=== PATIENT | male | born 1985 | race Caucasian/White ===

== ENCOUNTER 2017-12-25 19:05 | Emergency (ER) | payer BC ==
[2017-12-25] MEDS ORDERED: CEPHALEXIN 500 MG CAPSULE PO STA (19:47)
--- NOTE | 2017-12-25 19:47 | Emergency Department Record ---
History of Present Illness - General Stated Complaint: LACERATION ON RT HAND Time Seen by Provider: 12/25/17 19:41 Source: Patient Mode of Arrival: Ambulatory Limitations: No limitations - History of Present Illness Initial Comments: 32 yo male presents to ED for evaluation of a laceration to the right hand that occurred approximately 18 hours ago. Patient reports that he attempted to catch a falling knife early this morning, reports laceration to the palmar aspect of the right hand. Patient denies other injury, does report that his tetanus is UTD. Patient denies other injury, and denies finger weakness on examination. Complaint: Injury to:: Right Onset/Timin -: Hour(s) Other Extremity Injury: Hand: Right Other Injuries: None Handedness: Right Place: Home Improves With: Other (bandage) Associated Symptoms: Denies other symptoms Treatments Prior to Arrival: Bandage - Related Data Home Medications Medication Instructions Recorded Confirmed Last Taken Atomoxetine HCl [Atomoxetine HCl] 100 mg PO DAILY 12/25/17 12/25/17 Unknown Previous Rx's Medication Instructions Recorded Cephalexin [Keflex] 500 mg PO QID #28 cap 12/25/17 Allergies Allergy/AdvReac Type Severity Reaction Status Date / Time Sulfa (Sulfonamide AdvReac RASH Verified 03/13/16 13:51 Antibiotics) Review of Systems Constitutional: Denies: Chills, Fever, Malaise, Night sweats Eyes: Denies: Eye discharge, Eye pain ENT: Denies: Congestion, Ear pain, Epistaxis Respiratory: Denies: Cough, Dyspnea Cardiovascular: Denies: Chest pain, Dyspnea on exertion Endocrine: Denies: Fatigue, Heat or cold intolerance Gastrointestinal: Denies: Abdominal pain, Nausea, Vomiting Genitourinary: Denies: Incontinence, Retention Musculoskeletal: Denies: Arthralgia, Back pain, Gout, Joint swelling Skin: Reports: Other (hand laceration). Denies: Bruising, Change in color Neurological: Denies: Abnormal gait, Confusion, Headache Psychiatric: Denies: Anxiety Hematological/Lymphatic: Denies: Anemia, Blood Clots Past Medical History - SOCIAL HISTORY Smoking Status: Former smoker - RESPIRATORY Hx Respiratory Disorders: Yes Hx Asthma: Yes (WHEN HE WAS YOUNGER) Comment:: POPCORN KERNEL IN RT LUNG - CARDIOVASCULAR Hx Cardio Disorders: No - NEURO Hx Neuro Disorders: No - GI Hx GI Disorders: No - Hx Genitourinary Disorders: No - ENDOCRINE Hx Endocrine Disorders: No - MUSCULOSKELETAL Hx Musculoskeletal Disorders: No Comment:: GANGLION LEFT HAND - PSYCH Hx Psych Problems: Yes Hx Depression: Yes (IMPROVED) Comment:: THOUGHTS OF SUICIDE 2009 - HEMATOLOGY/ONCOLOGY Hx Hematology/Oncology Disorders: No Physical Exam - General General Appearance: Alert, Oriented x3, Cooperative, Mild distress Limitations: No limitations - Head Head exam: Atraumatic, Normocephalic, Normal inspection Head exam detail: negative: Abrasion, Contusion, Leon's sign, General tenderness, Hematoma, Laceration - Eye Eye exam: Normal appearance. negative: Conjunctival injection, Periorbital swelling, Periorbital tenderness, Scleral icterus - ENT Ear exam: negative: Auricular hematoma, Auricular trauma Nasal Exam: negative: Active bleeding, Discharge, Dried blood, Foreign body Mouth exam: negative: Drooling, Laceration, Muffled voice, Tongue elevation - Neck Neck exam: Normal inspection. negative: Meningismus, Tenderness - Respiratory Respiratory exam: Normal lung sounds bilaterally. negative: Respiratory distress, Rhonchi, Stridor, Wheezes - Cardiovascular Cardiovascular Exam: Regular rate, Normal rhythm, Normal heart sounds - GI/Abdominal GI/Abdominal exam: Soft. negative: Rebound, Rigid, Tenderness - Rectal Rectal exam: Deferred - exam: Deferred - Extremities Extremities exam: Tenderness, Other (2.0 cm laceration of the ashely aspect of the right hand between the thumb and 1st digit, no tendon laceration on examination. FROM of all digits with flexion/extension intact.). negative: Calf tenderness, Pedal edema - Back Back exam: Denies: CVA tenderness (R), CVA tenderness (L) - Neurological Neurological exam: Alert, Normal gait, Oriented X3 - Psychiatric Psychiatric exam: Normal affect, Normal mood - Skin Skin exam: Normal color. negative: Abrasion Type of lesion: negative: abrasion Course - Reevaluation(s) Reevaluation #1: 12/25/17 20:00 Procedure Note: Wound was anesthetized with 2.0 mL of 1% Lidocaine with epi solution with good anesthesia. Wound was prepped in sterile fashion, scrubbed with Hibiclens solution and jet irrigation performed to minimize the chance of infection. Wound was then closed using 4-0 Prolene sutures, #5 in interrupted fashion with good cosmesis and hemostasis. Patient tolerated the procedure well without complications. Patient was counseled extensively re: the chance of infection given the duration of laceration (18 hours), will initiate antibiotics as well as following thorough irrigation to minimize the chance of infection. Patient appears stable for discharge at this time with instructions to return for suture removal in 10-14 days. Disposition Disposition: Discharge Clinical Impression: Hand laceration Qualifiers: Encounter type: initial encounter Foreign body presence: without foreign body Laterality: right Qualified Code(s): S61.411A - Laceration without foreign body of right hand, initial encounter Disposition: Home, Self-Care Condition: (2) Stable Instructions: Care For Your Stitches (ED) Additional Instructions: Return to ED if your symptoms worsen or if you have any concerns. Keflex as directed. Follow-up with your family doctor in 7-10 days as directed. Sutures our in 10-14 days. Prescriptions: Cephalexin [Keflex] 500 mg PO QID #28 cap Forms: Patient Portal Access Time of Disposition: 19:46 Quality - Quality Measures Quality Measures: N/A - Blood Pressure Screening Does Patient Have Any of the Following: No Blood Pressure Classification: Pre-Hypertensive BP Reading Systolic Measurement: 147 Diastolic Measurement: 89 Screening for High Blood Pressure: < Pre-Hypertensive BP, F/U Documented > [ G8950] Pre-Hypertensive Follow-up Interventions: Referral to alternative/primary care provider.
== END 2017-12-25 20:22 | disposition home or self-care (01) ==
LOC: ER 19:05
DX: S61.411A Laceration without foreign body of right hand, initial encounter (principal); W26.0XXA Contact with knife, initial encounter; Y92.009 Unspecified place in unspecified non-institutional (private) residence as the place of occurrence of the external cause
CPT/HCPCS: 12041; 99283

== ENCOUNTER 2018-01-07 16:20 | Emergency (ER) | payer BC ==
--- NOTE | 2018-01-07 16:42 | Emergency Department Record ---
History of Present Illness - General Chief Complaint: Suture removal Stated Complaint: REMOVE STITCHES Time Seen by Provider: 01/07/18 16:36 Source: Patient Mode of arrival: Ambulatory Limitations: No limitations - History of Present Illness Initial Comments: The patient is here for suture removal. He denies any problems. Complaint: Suture/staple removal Onset/Timin Returns Today for: Staple/stitch removal Symptoms Since Prior Visit: No new symptoms Associated Symptoms: None - Related Data Previous Rx's Medication Instructions Recorded Cephalexin [Keflex] 500 mg PO QID #28 cap 12/25/17 Allergies Allergy/AdvReac Type Severity Reaction Status Date / Time Sulfa (Sulfonamide AdvReac RASH Verified 03/13/16 13:51 Antibiotics) Travel Screening - Travel/Exposure Within Last 30 Days Have you traveled within the last 30 days?: No - Travel/Exposure Within Last Year Have you traveled outside the [place] in the last year?: No - Additonal Travel Details Have you been exposed to anyone with a communicable illness?: No - Travel Symptoms Symptom Screening: None Review of Systems Constitutional: Denies: Chills, Fever Past Medical History - SOCIAL HISTORY Smoking Status: Former smoker Alcohol Use: Occasional Drug Use: None - RESPIRATORY Hx Respiratory Disorders: Yes Hx Asthma: Yes (WHEN HE WAS YOUNGER) Comment:: POPCORN KERNEL IN RT LUNG - CARDIOVASCULAR Hx Cardio Disorders: No - NEURO Hx Neuro Disorders: No - GI Hx GI Disorders: No - Hx Genitourinary Disorders: No - ENDOCRINE Hx Endocrine Disorders: No - MUSCULOSKELETAL Hx Musculoskeletal Disorders: No Comment:: GANGLION LEFT HAND - PSYCH Hx Psych Problems: Yes Hx Depression: Yes (IMPROVED) Comment:: THOUGHTS OF SUICIDE 2009 - HEMATOLOGY/ONCOLOGY Hx Hematology/Oncology Disorders: No Family Medical History Any Significant Family History?: No Physical Exam - General General Appearance: Alert, Oriented x3, Cooperative, No acute distress - Head Head exam: Atraumatic, Normocephalic - Eye Eye exam: Normal appearance, PERRL - Neck Neck exam: negative: Normal inspection (The hand laceration is well healed. The sutures were removed with no difficulty.) Course Vital Signs 01/07/18 16:27 Temperature 97.9 F Pulse Rate 100 H Respiratory 20 Rate Blood Pressure 142/91 Pulse Ox 99 Disposition Disposition: Discharge Clinical Impression: Encounter for removal of sutures Disposition: Home, Self-Care Condition: (2) Stable Instructions: Stitches Removal (ED) Additional Instructions: Return to the ER for any problems. Time of Disposition: 16:42 Quality - Quality Measures Quality Measures: N/A - Blood Pressure Screening View Details: Yes Does Patient Have Any of the Following: No Blood Pressure Classification: Hypertensive Reading Systolic Measurement: 142 Diastolic Measurement: 91 Screening for High Blood Pressure: < First Hypertensive BP, F/U Documented > [ G8950] First Hypertensive Follow-up Interventions: Referral to alternative/primary care provider.
== END 2018-01-07 16:48 | disposition home or self-care (01) ==
LOC: ER 16:20
DX: Z48.02 Encounter for removal of sutures (principal)